=== PATIENT | female | born 1970 | race Caucasian/White ===

== ENCOUNTER 2017-03-02 01:01 | Emergency (ER) | payer MEDICAID ==
[2017-03-02 01:15] VITALS: BP 114/90
--- NOTE | 2017-03-02 01:57 | EDM.PDOC ---
ED HPI GENERAL MEDICAL PROBLEM - General Chief Complaint: Abdominal Pain Stated Complaint: ABDOMINAL PRESSURE BACK PAIN Time Seen by Provider: 03/02/17 01:09 Source of Information: Reports: Patient, RN Notes Reviewed History Limitations: Reports: No Limitations - History of Present Illness INITIAL COMMENTS - FREE TEXT/NARRATIVE: The patient states that she is intentionally discontinuing her psychiatric medications because she does not want to be on them. Her Psychiatrist, Dr. Alves , is not aware of the patient doing this. The patient has already discontinued her Wellbutrin and Cymbalta, and is tapering her Klonopin and Vyvanse. She now presents with 3 weeks of feeling bloated, having "brain zaps", feeling sick and not feeling well, back pain with a creeping sensation into her shoulders, and the feeling of vibrating inside. It is unclear what brings the patient in tonight, specifically, since the symptoms have been going on for so long. The patient states that she took some MiraLAX yesterday, which may be contributing to her bloating symptoms. She also reports that she just finished her menses, and that she may be perimenopausal. It is noted that the patient's oxygen saturation is 100% on room air. 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 Tubal .) Musculoskeletal Surgical History: Reports: Other (See Below) (Spinal gio) Social & Family History - Tobacco Use Smoking Status *Q: Former Smoker Years of Tobacco use: 20 Packs/Tins Daily: 0.4 Used Tobacco, but Quit: Yes Month Tobacco Last Used: Quit January 2017 - Caffeine Use Caffeine Use: Reports: Coffee - Alcohol Use Alcohol Use History: No - Recreational Drug Use Recreational Drug Use: Yes Drug Use in Last 12 Months: Yes Recreational Drug Type: Reports: Marijuana/Hashish Recreational Drug Use Frequency: Weekly Recreational Drug Last Use: january - Living Situation & Occupation Living situation: Reports: Single, Alone Occupation: Unemployed ED ROS GENERAL - Review of Systems Review Of Systems: See Below Constitutional: Reports: No Symptoms HEENT: Reports: No Symptoms Respiratory: Reports: No Symptoms Cardiovascular: Reports: No Symptoms Endocrine: Reports: No Symptoms GI/Abdominal: Reports: Other (Abdominal bloating) : Reports: No Symptoms Musculoskeletal: Reports: No Symptoms Skin: Reports: No Symptoms Neurological: Reports: No Symptoms Psychiatric: Reports: No Symptoms Hematologic/Lymphatic: Reports: No Symptoms Immunologic: Reports: No Symptoms ED EXAM, GENERAL - Physical Exam Exam: See Below Exam Limited By: No Limitations General Appearance: Alert, WD/WN, No Apparent Distress Eye Exam: Bilateral Eye: Normal Inspection Ears: Normal External Exam, Hearing Grossly Normal Ear Exam: Bilateral Ear: Auricle Normal Nose: Normal Inspection, No Blood Throat/Mouth: Normal Inspection, Normal Lips, Normal Voice, No Airway Compromise Head: Atraumatic, Normocephalic Neck: Normal Inspection, Full Range of Motion Respiratory/Chest: No Respiratory Distress, Lungs Clear, Normal Breath Sounds, No Accessory Muscle Use Cardiovascular: Normal Peripheral Pulses, Regular Rate, Rhythm, No Gallop, No JVD, No Murmur, No Rub Peripheral Pulses: 4+: Radial (L), Radial (R) GI/Abdominal: Normal Bowel Sounds, Soft, Non-Tender, No Organomegaly, No Distention, No Abnormal Bruit, No Mass. No: Distended (Female) Exam: Deferred Rectal (Female) Exam: Deferred Back Exam: No: CVA Tenderness (L), CVA Tenderness (R) Extremities: Normal Inspection, Normal Range of Motion, No Pedal Edema, Normal Capillary Refill Neurological: Alert, Oriented, Normal Cognition, No Motor/Sensory Deficits Psychiatric: Anxious Skin Exam: Warm, Dry, Intact, Normal Color, No Rash Lymphatic: No Adenopathy EKG INTERPRETATION EKG Date: 03/02/17 Time: 01:46 Rhythm: NSR Rate (Beats/Min): 70 [place]: Normal P-Wave: Present QRS: Normal ST-T: Normal QT: Normal Course - Vital Signs Last Recorded V/S: Last Vital Signs Temp 36.2 C 03/02/17 01:08 Pulse 88 03/02/17 01:08 Resp 18 06/20/17 01:08 BP 114/90 03/02/17 01:08 Pulse Ox 100 03/02/17 01:08 - Orders/Labs/Meds Orders: Active Orders 24 hr Category Date Time Status EKG Documentation Completion [RC] STAT Care 03/02/17 01:31 Active KUB [Abdomen 1V Flat] [CR] Stat Exams 03/02/17 01:32 Taken Labs: Laboratory Tests 03/02/17 03/02/17 03/02/17 Range/Units 01:35 01:35 01:35 WBC (3.98-10.04) K/mm3 RBC (3.98-5.22) M/mm3 Hgb (11.2-15.7) gm/L Hct (34.1-44.9) % MCV (79.4-94.8) fl MCH (25.6-32.2) pg MCHC (32.2-35.5) g/dl RDW Std Deviation (36.4-46.3) fL Plt Count (182-369) K/mm3 MPV (9.4-12.3) fl Neutrophils % (Manual) (40-60) % Band Neutrophils % (0-10) % Lymphocytes % (Manual) (20-40) % Atypical Lymphs % % Monocytes % (Manual) (2-10) % Eosinophils % (Manual) (0.7-5.8) % Basophils % (Manual) (0.1-1.2) Platelet Estimate RBC Morph Comment D-Dimer, Quantitative (0.19-0.59) mg/L Puncture Site ABG pH (7.35-7.45) ABG pCO2 (35.0-45.0) mmHg ABG pO2 (80.0-100.0) mmHg ABG HCO3 (22.0-26.0) meq/L ABG O2 Saturation (96.0-97.0) % ABG Base Excess (-2-2.0) Parker Test A-a Gradient mmHg FiO2 (21.00-100.00) % Sodium (136-145) mEq/L Potassium (3.5-5.1) mEq/L Chloride (98-107) mEq/L Carbon Dioxide (21-32) mEq/L Anion Gap (5-15) BUN (7-18) mg/dL Creatinine (0.55-1.02) mg/dL Est Cr Clr Drug Dosing mL/min Estimated GFR (MDRD) (>60) mL/min BUN/Creatinine Ratio (14-18) Glucose (74-106) mg/dL Calcium (8.5-10.1) mg/dL Total Bilirubin (0.2-1.0) mg/dL AST (15-37) U/L ALT (14-59) U/L Alkaline Phosphatase (46-116) U/L Total Protein (6.4-8.2) g/dl Albumin (3.4-5.0) g/dl Globulin gm/dL Albumin/Globulin Ratio (1-2) TSH 3rd Generation (0.358-3.74) uIU/mL Urine Color Yellow (Yellow) Urine Appearance Clear (Clear) Urine pH 6.5 (5.0-8.0) Ur Specific [place] 1.025 (1.005-1.030) Urine Protein 1+ H (Negative) Urine Glucose (UA) Negative (Negative) Urine Ketones Negative (Negative) Urine Occult Blood Trace-intact H (Negative) Urine Nitrite Negative (Negative) Urine Bilirubin 1+ H (Negative) Urine Urobilinogen 1.0 (0.2-1.0) Ur Leukocyte Esterase Negative (Negative) Urine RBC 0-5 (0-5) /hpf Urine WBC 0-5 (0-5) /hpf Ur Epithelial Cells 10-20 H (0-5) /hpf Urine Bacteria Few (FEW) /hpf Urine Mucus Moderate H (FEW) /hpf Urine HCG, Qual Negative (NEGATIVE) Salicylates (2.8-20) mg/dL Urine Opiates Screen Negative (NEGATIVE) Ur Buprenorphine Scrn Negative (NEGATIVE) Ur Oxycodone Screen Negative (NEGATIVE) Urine Methadone Screen Negative (NEGATIVE) Ur Propoxyphene Screen Negative (NEGATIVE) Acetaminophen (10-30) ug/mL Ur Barbiturates Screen Negative (NEGATIVE) Ur Tricyclics Screen Negative (NEGATIVE) Ur Phencyclidine Scrn Negative (NEGATIVE) Ur Amphetamine Screen Presumptive positive H (NEGATIVE) U Methamphetamines Scrn Negative (NEGATIVE) U Benzodiazepines Scrn Negative (NEGATIVE) U Cocaine Metab Screen Negative (NEGATIVE) U Marijuana (THC) Screen Presumptive positive H (NEGATIVE) Ethyl Alcohol (0.00) gm% 03/02/17 03/02/17 03/02/17 Range/Units 01:45 01:45 01:45 WBC 8.23 (3.98-10.04) K/mm3 RBC 4.68 (3.98-5.22) M/mm3 Hgb 14.2 (11.2-15.7) gm/L Hct 41.8 (34.1-44.9) % MCV 89.3 (79.4-94.8) fl MCH 30.3 (25.6-32.2) pg MCHC 34.0 (32.2-35.5) g/dl RDW Std Deviation 40.9 (36.4-46.3) fL Plt Count 315 (182-369) K/mm3 MPV 9.7 (9.4-12.3) fl Neutrophils % (Manual) 57 (40-60) % Band Neutrophils % 0 (0-10) % Lymphocytes % (Manual) 36 (20-40) % Atypical Lymphs % 0 % Monocytes % (Manual) 3 (2-10) % Eosinophils % (Manual) 4 (0.7-5.8) % Basophils % (Manual) 0 L (0.1-1.2) Platelet Estimate Adequate RBC Morph Comment Normal D-Dimer, Quantitative 0.41 (0.19-0.59) mg/L Puncture Site ABG pH (7.35-7.45) ABG pCO2 (35.0-45.0) mmHg ABG pO2 (80.0-100.0) mmHg ABG HCO3 (22.0-26.0) meq/L ABG O2 Saturation (96.0-97.0) % ABG Base Excess (-2-2.0) Parker Test A-a Gradient mmHg FiO2 (21.00-100.00) % Sodium 139 (136-145) mEq/L Potassium 3.7 (3.5-5.1) mEq/L Chloride 105 (98-107) mEq/L Carbon Dioxide 26 (21-32) mEq/L Anion Gap 11.7 (5-15) BUN 16 (7-18) mg/dL Creatinine 0.9 (0.55-1.02) mg/dL Est Cr Clr Drug Dosing 71.03 mL/min Estimated GFR (MDRD) > 60 (>60) mL/min BUN/Creatinine Ratio 17.8 (14-18) Glucose 93 (74-106) mg/dL Calcium 8.3 L (8.5-10.1) mg/dL Total Bilirubin 0.7 (0.2-1.0) mg/dL AST 23 (15-37) U/L ALT 21 (14-59) U/L Alkaline Phosphatase 71 (46-116) U/L Total Protein 7.0 (6.4-8.2) g/dl Albumin 3.7 (3.4-5.0) g/dl Globulin 3.3 gm/dL Albumin/Globulin Ratio 1.1 (1-2) TSH 3rd Generation 3.088 (0.358-3.74) uIU/mL Urine Color (Yellow) Urine Appearance (Clear) Urine pH (5.0-8.0) Ur Specific [place] (1.005-1.030) Urine Protein (Negative) Urine Glucose (UA) (Negative) Urine Ketones (Negative) Urine Occult Blood (Negative) Urine Nitrite (Negative) Urine Bilirubin (Negative) Urine Urobilinogen (0.2-1.0) Ur Leukocyte Esterase (Negative) Urine RBC (0-5) /hpf Urine WBC (0-5) /hpf Ur Epithelial Cells (0-5) /hpf Urine Bacteria (FEW) /hpf Urine Mucus (FEW) /hpf Urine HCG, Qual (NEGATIVE) Salicylates (2.8-20) mg/dL Urine Opiates Screen (NEGATIVE) Ur Buprenorphine Scrn (NEGATIVE) Ur Oxycodone Screen (NEGATIVE) Urine Methadone Screen (NEGATIVE) Ur Propoxyphene Screen (NEGATIVE) Acetaminophen 0 L (10-30) ug/mL Ur Barbiturates Screen (NEGATIVE) Ur Tricyclics Screen (NEGATIVE) Ur Phencyclidine Scrn (NEGATIVE) Ur Amphetamine Screen (NEGATIVE) U Methamphetamines Scrn (NEGATIVE) U Benzodiazepines Scrn (NEGATIVE) U Cocaine Metab Screen (NEGATIVE) U Marijuana (THC) Screen (NEGATIVE) Ethyl Alcohol 0.00 (0.00) gm% 03/02/17 03/02/17 Range/Units 01:45 01:50 WBC (3.98-10.04) K/mm3 RBC (3.98-5.22) M/mm3 Hgb (11.2-15.7) gm/L Hct (34.1-44.9) % MCV (79.4-94.8) fl MCH (25.6-32.2) pg MCHC (32.2-35.5) g/dl RDW Std Deviation (36.4-46.3) fL Plt Count (182-369) K/mm3 MPV (9.4-12.3) fl Neutrophils % (Manual) (40-60) % Band Neutrophils % (0-10) % Lymphocytes % (Manual) (20-40) % Atypical Lymphs % % Monocytes % (Manual) (2-10) % Eosinophils % (Manual) (0.7-5.8) % Basophils % (Manual) (0.1-1.2) Platelet Estimate RBC Morph Comment D-Dimer, Quantitative (0.19-0.59) mg/L Puncture Site Lt radial ABG pH 7.44 (7.35-7.45) ABG pCO2 29.4 L (35.0-45.0) mmHg ABG pO2 86.0 (80.0-100.0) mmHg ABG HCO3 19.5 L (22.0-26.0) meq/L ABG O2 Saturation 98.0 H (96.0-97.0) % ABG Base Excess -3.1 L (-2-2.0) Parker Test Positive A-a Gradient 12 mmHg FiO2 21.00 (21.00-100.00) % Sodium (136-145) mEq/L Potassium (3.5-5.1) mEq/L Chloride (98-107) mEq/L Carbon Dioxide (21-32) mEq/L Anion Gap (5-15) BUN (7-18) mg/dL Creatinine (0.55-1.02) mg/dL Est Cr Clr Drug Dosing mL/min Estimated GFR (MDRD) (>60) mL/min BUN/Creatinine Ratio (14-18) Glucose (74-106) mg/dL Calcium (8.5-10.1) mg/dL Total Bilirubin (0.2-1.0) mg/dL AST (15-37) U/L ALT (14-59) U/L Alkaline Phosphatase (46-116) U/L Total Protein (6.4-8.2) g/dl Albumin (3.4-5.0) g/dl Globulin gm/dL Albumin/Globulin Ratio (1-2) TSH 3rd Generation (0.358-3.74) uIU/mL Urine Color (Yellow) Urine Appearance (Clear) Urine pH (5.0-8.0) Ur Specific [place] (1.005-1.030) Urine Protein (Negative) Urine Glucose (UA) (Negative) Urine Ketones (Negative) Urine Occult Blood (Negative) Urine Nitrite (Negative) Urine Bilirubin (Negative) Urine Urobilinogen (0.2-1.0) Ur Leukocyte Esterase (Negative) Urine RBC (0-5) /hpf Urine WBC (0-5) /hpf Ur Epithelial Cells (0-5) /hpf Urine Bacteria (FEW) /hpf Urine Mucus (FEW) /hpf Urine HCG, Qual (NEGATIVE) Salicylates 1.0 L (2.8-20) mg/dL Urine Opiates Screen (NEGATIVE) Ur Buprenorphine Scrn (NEGATIVE) Ur Oxycodone Screen (NEGATIVE) Urine Methadone Screen (NEGATIVE) Ur Propoxyphene Screen (NEGATIVE) Acetaminophen (10-30) ug/mL Ur Barbiturates Screen (NEGATIVE) Ur Tricyclics Screen (NEGATIVE) Ur Phencyclidine Scrn (NEGATIVE) Ur Amphetamine Screen (NEGATIVE) U Methamphetamines Scrn (NEGATIVE) U Benzodiazepines Scrn (NEGATIVE) U Cocaine Metab Screen (NEGATIVE) U Marijuana (THC) Screen (NEGATIVE) Ethyl Alcohol (0.00) gm% - Radiology Interpretation Free Text/Narrative:: The KUB appears to demonstrate nonspecific bowel gas pattern, and stool noted in the right colon. Incidentally noted is severe scoliosis with a thoracic spine gio. Formal read per the Radiologist pending. - Re-Assessments/Exams Free Text/Narrative Re-Assessment/Exam: 03/02/17 02:22 The patient's ABG demonstrates chronic (fully compensated) respiratory alkalosis. The patient's urinalysis is consistent with contamination, not a UTI. 03/02/17 03:08 Test results discussed with the patient. Keith's workup is remarkable for an ABG that shows chronic respiratory alkalosis due to hyperventilation, which is most likely the cause of the majority of the patient's symptoms. She is most likely hyperventilating because of stopping her Wellbutrin and Cymbalta, and decreasing her Klonopin. I recommended that she go back on her medications, and that if she did not want to be on these medications, that she coordinate her withdrawal with her prescribing physician, however, she states that Dr. Alves will not work with her. My plan was to discharge the patient, but before I could begin dictating a discharge summary, the patient left the ED without waiting for her discharge papers. Departure - Departure Time of Disposition: 03:09 Disposition: Eloped 07 Condition: Fair Clinical Impression: Hyperventilation syndrome, Noncompliance with medication regimen - Discharge Information Referrals: PCP,None [Primary Care Provider] - Bambi Alves MD [Ordering Only Provider] - Forms: ED Department Discharge - My Orders Last 24 Hours: My Active Orders 03/02/17 01:31 EKG Documentation Completion [RC] STAT 03/02/17 01:32 KUB [Abdomen 1V Flat] [CR] Stat - Assessment/Plan Last 24 Hours: My Active Orders 03/02/17 01:31 EKG Documentation Completion [RC] STAT 03/02/17 01:32 KUB [Abdomen 1V Flat] [CR] Stat
[2017-03-02 02:26] LABS: ACETAMINOPHEN 0 ug/mL (10-30)
--- NOTE | 2017-03-02 09:07 | CR ---
Abdomen: Supine view of the abdomen was obtained. Comparison: No previous study. Scoliosis is noted within the spine. Spinal fixation rods are seen within the lower thoracic spine which are incompletely visualized. Bowel gas pattern is normal. Mild degenerative sclerosis is noted within the pubic symphysis. Bowel gas pattern appears normal. No abnormal calcifications or discrete soft tissue abnormality is seen. Impression: 1. Incidental bone findings as noted above. 2. Bowel gas pattern appears normal. Diagnostic code #2
== END 2017-03-02 03:09 | disposition home or self-care (01) ==
LOC: JD.ED 01:01
DX: F45.8 Other somatoform disorders (principal); F41.9 Anxiety disorder, unspecified; F32.9 Major depressive disorder, single episode, unspecified; Z91.14 Patient's other noncompliance with medication regimen; Z90.49 Acquired absence of other specified parts of digestive tract; Z87.891 Personal history of nicotine dependence
CPT/HCPCS: 36415; 36600; 74000; 80053; 80306; 81001; 81025; 82803; 84443; 85025; 85379; 93005; 99284; G0480; 99283

== ENCOUNTER 2017-11-07 22:35 | Emergency (ER) | payer MEDICAID, OTHER ==
[2017-11-07] MEDS ORDERED: Lidocaine 1% 10 ML MDV INJECT ONE (23:18)
[2017-11-07 23:23] VITALS: BP 120/79
--- NOTE | 2017-11-07 23:23 | EDM.PDOC ---
ED HPI GENERAL MEDICAL PROBLEM - General Chief Complaint: Laceration Stated Complaint: POSS FOOT INJURY Time Seen by Provider: 11/07/17 23:18 Source of Information: Reports: Patient, Family History Limitations: Reports: No Limitations - History of Present Illness INITIAL COMMENTS - FREE TEXT/NARRATIVE: 47-year-old female presents the ED with a flap laceration to the dorsal aspect of her left foot. She states she was in her spare bedroom which is cluttered and there is some broken glass on the floor. As she stepped over a broken picture frame a piece of glass essentially stabbed her in the dorsal foot causing a flap laceration. Last tetanus toxoid was about 9 years ago she believes. Onset: Today Onset Date: 11/07/17 Onset Time: 23:00 Duration: Minutes: Location: Reports: Lower Extremity, Left Quality: Reports: Ache Severity: Mild Improves with: Reports: None Worsens with: Reports: None Context: Reports: Trauma. 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 Tubal .) Musculoskeletal Surgical History: Reports: Other (See Below) (Spinal gio) Social & Family History - Tobacco Use Smoking Status *Q: Former Smoker Years of Tobacco use: 20 Packs/Tins Daily: 0.4 Used Tobacco, but Quit: Yes Month Tobacco Last Used: Quit January 2017 - Caffeine Use Caffeine Use: Reports: Coffee - Recreational Drug Use Recreational Drug Use: Yes Drug Use in Last 12 Months: Yes Recreational Drug Type: Reports: Marijuana/Hashish Recreational Drug Use Frequency: Weekly Recreational Drug Last Use: january - Living Situation & Occupation Living situation: Reports: Single, Alone Occupation: Unemployed ED ROS GENERAL - Review of Systems Review Of Systems: See Below Constitutional: Reports: No Symptoms HEENT: Reports: No Symptoms Respiratory: Reports: No Symptoms Cardiovascular: Reports: No Symptoms Endocrine: Reports: No Symptoms GI/Abdominal: Reports: No Symptoms : Reports: No Symptoms Musculoskeletal: Reports: No Symptoms Skin: Reports: No Symptoms Psychiatric: Reports: Anxiety ED EXAM, SKIN/RASH Exam: See Below Exam Limited By: No Limitations General Appearance: Alert, WD/WN, Anxious, Mild Distress Peripheral Pulses: 1+: Posterior Tibial (R), Dorsalis Pedis (L) Extremities: Other (Examination the left foot shows a 2.5 cm jagged flap laceration over the dorsal forefoot primarily over the fourth medical tarsal. She has full range of motion of her toes I dorsiflexion and extension. No evidence of neurovascular or tendon injury. Obvious foreign body retention. Wound is mildly bleeding.) Neurological: Alert, Oriented, CN II-XII Intact, Normal Cognition, Normal Gait ED SKIN PROCEDURES - Laceration/Wound Repair Left Dorsal Foot Lac/Wound length In cm: 2.5 Appearance: Subcutaneous, Clean Distal NVT: Neuro & Vascular Intact Anesthetic Type: Local Local Anesthesia - Lidocaine (Xylocaine): 1% Plain Local Anesthetic Volume: 3cc Skin Prep: Saline Exploration/Debridement/Repair: Wound Explored Suture Size: 4-0 # of Sutures: 7 Suture Type: Nylon, Interrupted, Simple Course - Vital Signs Last Recorded V/S: Last Vital Signs Temp 36.9 C 11/07/17 23:22 Pulse 79 11/07/17 23:22 Resp 20 11/07/17 23:22 BP 120/79 11/07/17 23:22 Pulse Ox 98 11/07/17 23:22 - Orders/Labs/Meds Meds: Medications Discontinued Medications Generic Name Dose Route Start Last Admin Trade Name Freq PRN Reason Stop Dose Admin Lidocaine HCl 10 ml 11/07/17 23:18 11/07/17 23:33 Xylocaine 1% INJECT 11/07/17 23:19 10 ml ONETIME ONE Administration - Radiology Interpretation Free Text/Narrative:: 47-year-old female presents the ED with a laceration to the dorsal aspect of her left forefoot. She inadvertently cut it on a piece of glass . Has a 2.5 cm flap laceration over the fourth metatarsal. No evidence of neurovascular or tendon injury. Plan lidocaine 1% to provide local anesthetic with plan to suture the laceration after exploration. Departure - Departure Time of Disposition: 00:30 Disposition: Home, Self-Care 01 Condition: Fair Clinical Impression: Laceration of foot Qualifiers: Encounter type: initial encounter Laterality: left Qualified Code(s): S91.312A - Laceration without foreign body, left foot, initial encounter - Discharge Information Referrals: Bright Randhawa MD [Primary Care Provider] - Forms: ED Department Discharge Additional Instructions: Evaluation the emergency room tonight in regards to a deep laceration to the dorsal aspect of your left foot that occurred from a piece of glass. Partially 2.5 cm jagged flap laceration identified. Wound was explored after anesthetized with 1% lidocaine and no foreign body or glass was found within the wound. There is no injury to the underlying tendons or nerves. Wound was then sutured 7 sit stitches to provide wound closure. Treatment at home is daily cleanse the wound with soap and water. Showering is okay but the wound should not be soaked directly under water until the stitches are removed. Apply topical antibiotic such as bacitracin or Polysporin once daily and cover with a bandage to keep clean and from she was rubbing on it. Stitches need to be removed in 10 days' time. Return to medical care if any signs of infection occur such as redness swelling or obvious pus.
== END 2017-11-08 00:39 | disposition home or self-care (01) ==
LOC: JD.ED 22:35
DX: S91.312A Laceration without foreign body, left foot, initial encounter (principal); F32.9 Major depressive disorder, single episode, unspecified; Z87.891 Personal history of nicotine dependence; Z79.899 Other long term (current) drug therapy; W25.XXXA Contact with sharp glass, initial encounter
CPT/HCPCS: 12001; 99282-25; 99283-25

== ENCOUNTER 2017-11-29 09:32 | Emergency (ER) | payer OTHER ==
[2017-11-29 09:41] VITALS: BP 148/88
--- NOTE | 2017-11-29 09:59 | EDM.PDOC ---
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 States she attended work on WednesdayNovember 27 with no difficulties or pain. About 2:00 in the afternoon she started to limp and have increasing pain in her lower back rating down her posterior left thigh. That time the pain is persistent it is constant. It is worsened by standing but it's just as bad line. She cannot find a comfortable position. No past history of low back pain she has had scoliosis repair with rods of the thoracic spine. Current pain radiates to just below the back of her knee on the left side. She is walking with a definite limp. Slips or falls that she can remember last week. Her work does involve a lot of twisting and turning and of course working on hard concrete floor. Denies any pros with bowel or bladder function. Onset: Gradual Onset Date: 11/27/17 Onset Time: 14:00 Duration: Day(s): Location: Reports: Back (Diffuse low back pain with radicular pain into the left buttock and posterior left thigh down below the knee.) Quality: Reports: Ache, Pressure, Throbbing, Other Severity: Severe (Current pain is 8 out of 10.) Improves with: Reports: None (He has bad lying) Worsens with: Reports: Movement Context: Reports: Other (Unknown how she developed this. No specific injuries in the workplace). Denies: Activity (Pain is worsened by standing for very long.), Exercise, Lifting, Sick Contact, Trauma Associated Symptoms: Denies: Confusion, Chest Pain, cough w sputum, Diaphoresis , Fever/Chills, Headaches, Loss of Appetite, Malaise, Nausea/Vomiting, Rash, Seizure, Shortness of Breath, Syncope Treatments [employer]: Reports: Other Medication(s) Other Treatments [employer]: aleve Lower Back Pain Score (Numeric/FACES): 8 - Related Data Allergies Allergy/AdvReac Type Severity Reaction Status Date / Time No Known Allergies Allergy Verified 03/02/17 01:16 Home Meds: Home Meds clonazePAM [Klonopin] 1 mg PO DAILY 03/27/16 [History] Citalopram Hydrobromide [Celexa] 10 mg PO DAILY 11/07/17 [History] Albuterol [Proair HFA] 1 puff IH Q4H PRN 11/29/17 [History] Diclofenac Sodium [Voltaren] 50 mg PO TID #30 tab.ec 11/29/17 [Rx] oxyCODONE HCl/Acetaminophen [Percocet 5-325 mg Tablet] 1 - 2 each PO Q4H PRN # 20 tablet 11/29/17 [Rx] predniSONE [Deltasone] 20 mg PO ASDIRECTED #15 tablet 11/29/17 [Rx] Past Medical History Respiratory History: Reports: Asthma [employer] History: Reports: Ectopic , 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 Musculoskeletal History: Reports: Other (See Below) Other Musculoskeletal History: scoliosis, 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 Psychiatric History: Reports: ADHD, Anxiety, Depression, Panic Attack, PTSD Hematologic History: Reports: Blood Transfusion(s) - Past Surgical History GI Surgical History: Reports: Appendectomy Social & Family History - Family History Family Medical History: Noncontributory - Tobacco Use Smoking Status *Q: Never Smoker Years of Tobacco use: 20 Packs/Tins Daily: 0.4 Used Tobacco, but Quit: Yes Month/Year Tobacco Last Used: Quit January 2017 - Caffeine Use Caffeine Use: Reports: Coffee - Recreational Drug Use Recreational Drug Use: No Drug Use in Last 12 Months: Yes Recreational Drug Type: Reports: Marijuana/Hashish Recreational Drug Use Frequency: Weekly Recreational Drug Last Use: january - Living Situation & Occupation Living situation: Reports: Single, Alone Occupation: Unemployed ED [facility] - Review of Systems Review Of Systems: See Below Constitutional: Reports: Fatigue (From not sleeping very well the last 2 nights. ). Denies: Fever, Malaise, Weakness HEENT: Reports: No Symptoms Respiratory: Reports: No Symptoms Cardiovascular: Reports: No Symptoms Endocrine: Reports: No Symptoms GI/Abdominal: Reports: Constipation : Reports: No Symptoms (Some problems with constipation.) Musculoskeletal: Reports: Back Pain (Mid back pain from previous rodding for scoliosis of the thoracic spine.) Skin: Reports: No Symptoms Neurological: Reports: Other (Radicular pain in the posterior aspect of the) Psychiatric: Reports: Anxiety Hematologic/Lymphatic: Reports: No Symptoms ED EXAM,LOWER BACK PAIN/INJURY - Physical Exam Exam: See Below Exam Limited By: No Limitations General Appearance: Alert, WD/WN, Mild Distress Cardiovascular: Normal Peripheral Pulses, Regular Rate, Rhythm, No Edema, No Gallop, No Murmur GI/Abdominal: Normal Bowel Sounds, Soft, Non-Tender, No Organomegaly Back Exam: Other (Patient has rodding of her thoracic spine and carried out in the past. Well-healed scar. She has some pain and tenderness over L4-L5 and L5- S1 facet joints bilaterally. However stressing the SI joints caused severe pain taken on the left side but moderate pain on the right side as well. Straight leg raising was 60 with out any limitations. Reflexes are present in both ankles and the knees. Likely she has bilateral severe sacroiliitis worse on the left as compared to the right.) Extremities: Normal Inspection, Normal Range of Motion, Non-Tender, No Pedal Edema, Normal Capillary Refill Neurological: Normal Mood/Affect, Normal Dorsiflexion, CN II-XII Intact, Normal Plantar Flexion, Normal Reflexes, Oriented x 3, Straight Leg Raise (L) (Normal to 60 normal to 60), Straight Leg Raise (R), Difficulty Walking. No: Normal Gait, Babinski DTR - Lower Extremities: 2+: Knee (R), Knee (L), Ankle (R), Ankle (L) Psychiatric: Anxious Skin Exam: Dry, Intact, Normal Color, No Rash, Decubitus Course - Vital Signs Last Recorded V/S: Last Vital Signs Temp 36.4 C 11/29/17 09:36 Pulse 83 11/29/17 09:36 Resp 18 11/29/17 09:36 BP 148/88 H 11/29/17 09:36 Pulse Ox 97 11/29/17 09:36 - Radiology Interpretation Free Text/Narrative:: 47-year-old female presents to the ED with diffuse low back pain rating down her posterior left buttock and into the left thigh behind her knee. 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 No specific injuries occurred. On examination she has mild to moderate pain at L4-L5 and L5-S1 facet joints on both sides of her lower back. She has severe pain on palpation of the left sacroiliac joint and moderate pain of palpation of the right sacroiliac joint. Neurologically she is intact. Knee jerks and ankle jerks are normal straight leg raising was to 60 bilaterally without any evidence of nerve root entrapment. Plan off work for this week. Aggressive anti-inflammatory treatment program with Voltaren 50 mg 3 times daily for 10 days. Prednisone 20 mg with breakfast and supper for 5 days then once in the morning only for another 5 days. Percocet 5/3/25 milligram tabs one or 2 every 4-6 hours for pain relief particularly at bedtime so that she can sleep. 20 tablets provided. She is advised to follow-up with Dr. Hilliard her primary care physician or Wednesday this week to see if she is getting better enough to return to work early next week. Departure - Departure Time of Disposition: 09:55 Disposition: Home, Self-Care 01 Condition: Fair Clinical Impression: Sacroiliitis, Low back pain - Discharge Information Prescriptions: Diclofenac Sodium [Voltaren] 50 mg PO TID #30 tab.ec oxyCODONE HCl/Acetaminophen [Percocet 5-325 mg Tablet] 1 - 2 each PO Q4H PRN # 20 tablet PRN Reason: pain relief. predniSONE [Deltasone] 20 mg PO ASDIRECTED #15 tablet Instructions: Back Pain, Adult, [id number] Referrals: Bright Randhawa MD [Primary Care Provider] - Forms: ED Department Discharge, ED Return to Work/School Form Additional Instructions: Evaluation the emergency room today in regards to development of diffuse low back pain with referred pain into the left buttock and down the back of the left leg starting November 27. No specific injury in the workplace was identified to be the cause. Examination reveals no clear-cut evidence of nerve root compression. A straight leg raising is normal bilaterally. However stressing the sacroiliac joint bilaterally is mildly painful but moderately painful on the left as compared to the right.This is sacroiliitis. There is associated mild diffuse low back pain and some inflammation in the L4-L5 facet joints bilaterally. It is time to heal. Off work the rest of this week. Suggest follow-up with her personal care provider on Wednesday to see if you might be able to return to work Wednesday next week. Emend is anti-inflammatory Deltasone 20 mg with breakfast and supper for 5 days then 1 tablet in the morning only for another 5 days. Should be taken with food. Voltaren 50 mg 3 times daily for the next 10 days to reduce pain and inflammation. This too should be taken with food. Percocet 5/325 milligram tablets one or 2 every 4-6 hours for pain relief particularly at bedtime to allow you to sleep. Should not operate a motor vehicle or machinery while taking this pain medication.
== END 2017-11-29 10:02 | disposition home or self-care (01) ==
LOC: JD.ED 09:32
DX: M46.1 Sacroiliitis, not elsewhere classified (principal); Z79.899 Other long term (current) drug therapy; Z87.891 Personal history of nicotine dependence
CPT/HCPCS: 99283

== ENCOUNTER 2018-04-24 19:13 | Emergency (ER) | payer SELFPAY ==
[2018-04-24 19:29] VITALS: BP 141/96
[2018-04-24] MEDS ORDERED: HYDROmorphone 1 MG/ML Syringe IM ONE (19:45)
[2018-04-24] MEDS ORDERED: Ondansetron 4 MG Tab.DIS PO ONE (19:45)
--- NOTE | 2018-04-24 19:51 | EDM.PDOC ---
ED HPI GENERAL MEDICAL PROBLEM - General Chief Complaint: Back Pain or Injury Stated Complaint: LOWER BACK PAIN Time Seen by Provider: 04/24/18 19:34 Source of Information: Reports: Patient History Limitations: Reports: No Limitations - History of Present Illness INITIAL COMMENTS - FREE TEXT/NARRATIVE: Patient is a 47-year-old female who presents ED complaining of low back discomfort and pain to the suprapubic region. Patient states the discomfort to her lower abdomen has been present for the past few days. She's noticed some increased frequency of urination with small amounts. No dysuria noted. She's got a foul order to her urine for the past week. No abnormal vaginal discharge. No documented fever. No nausea or vomiting although she does have a poor appetite. She denies any diarrhea or blood in her stool. She's been having normal bowel movements with no straining required. Pain to the abdomen described as a achy crampy sensation that is sharp on intermittent basis. It is not constant. Yesterday she was not at work because she felt ill. 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 She does have scoliosis and has surgery in the past to correct this. Pain is localized to the back. She denies any numbness or tingling to her explore extremities. No incontinence to urine or stool. Pain is worse with palpation and also movement. Nothing unusual when she overdoes herself. She has not taken any [id number] pain medications. Again she denies being . 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 ED EXAM, GI/ABD - Physical Exam Exam: See Below Exam Limited By: No Limitations General Appearance: Alert, WD/WN, No Apparent Distress Ears: Hearing Grossly Normal Nose: Normal Inspection Throat/Mouth: Normal Voice, No Airway Compromise Head: Atraumatic, Normocephalic Neck: Normal Inspection, Supple, Non-Tender, Full Range of Motion Respiratory/Chest: No Respiratory Distress, Lungs Clear, Normal Breath Sounds, Chest Non-Tender Cardiovascular: Normal Peripheral Pulses, Regular Rate, Rhythm, No Murmur GI/Abdominal Exam: Normal Bowel Sounds, Soft, Non-Tender, No Organomegaly, No Distention (Female) Exam: Deferred Rectal (Female) Exam: Deferred Back Exam: Normal Inspection, Decreased Range of Motion, Vertebral Tenderness ( Tenderness noted along the lumbar spine with palpation and along the waistline bilaterally. No swelling, rash, bony abnormalities, redness, or any additional pertinent findings noted.). No: CVA Tenderness (L), CVA Tenderness (R) Extremities: Normal Inspection, Normal Range of Motion, Non-Tender, No Pedal Edema, Normal Capillary Refill Neurological: Alert, Oriented, CN II-XII Intact, Normal Cognition, No Motor/ Sensory Deficits Psychiatric: Normal Affect, Normal Mood Skin Exam: Warm, Dry, Intact, Normal Color, No Rash Course - Vital Signs Last Recorded V/S: Last Vital Signs Temp 98.1 F 04/24/18 19:28 Pulse 107 H 04/24/18 19:28 Resp 20 04/24/18 19:28 BP 141/96 H 04/24/18 19:28 Pulse Ox 96 04/24/18 19:28 - Orders/Labs/Meds Orders: Active Orders 24 hr Category Date Time Status Abdomen 2V AP Flat Upright [CR] Stat Exams 04/24/18 19:44 Taken HCG QUALITATIVE,URINE [URCHEM] Stat Lab 04/24/18 20:15 Ordered Labs: Laboratory Tests 08/12/18 08/12/18 08/12/18 Range/Units 20:00 20:00 20:15 WBC 13.99 H (3.98-10.04) K/mm3 RBC 4.81 (3.98-5.22) M/mm3 Hgb 13.5 (11.2-15.7) gm/L Hct 41.2 (34.1-44.9) % MCV 85.7 (79.4-94.8) fl MCH 28.1 (25.6-32.2) pg MCHC 32.8 (32.2-35.5) g/dl RDW Std Deviation 43.1 (36.4-46.3) fL Plt Count 420 H (182-369) K/mm3 MPV 9.8 (9.4-12.3) fl Neutrophils % (Manual) 60 (40-60) % Band Neutrophils % 0 (0-10) % Lymphocytes % (Manual) 32 (20-40) % Atypical Lymphs % 0 % Monocytes % (Manual) 5 (2-10) % Eosinophils % (Manual) 3 (0.7-5.8) % Basophils % (Manual) 0 L (0.1-1.2) Platelet Estimate Adequate Plt Morphology Comment Normal RBC Morph Comment Normal Sodium 141 (136-145) mEq/L Potassium 4.1 (3.5-5.1) mEq/L Chloride 105 (98-107) mEq/L Carbon Dioxide 27 (21-32) mEq/L Anion Gap 13.1 (5-15) BUN 15 (7-18) mg/dL Creatinine 1.0 (0.55-1.02) mg/dL Est Cr Clr Drug Dosing 63.25 mL/min Estimated GFR (MDRD) 60 (>60) mL/min BUN/Creatinine Ratio 15.0 (14-18) Glucose 96 (74-106) mg/dL Calcium 8.6 (8.5-10.1) mg/dL Total Bilirubin 0.2 (0.2-1.0) mg/dL AST 17 (15-37) U/L ALT 26 (14-59) U/L Alkaline Phosphatase 93 (46-116) U/L C-Reactive Protein 0.5 (<1.0) mg/dL Total Protein 7.4 (6.4-8.2) g/dl Albumin 3.4 (3.4-5.0) g/dl Globulin 4.0 gm/dL Albumin/Globulin Ratio 0.9 L (1-2) Urine Color (Yellow) Urine Appearance (Clear) Urine pH (5.0-8.0) Ur Specific [place] (1.005-1.030) Urine Protein (Negative) Urine Glucose (UA) (Negative) Urine Ketones (Negative) Urine Occult Blood (Negative) Urine Nitrite (Negative) Urine Bilirubin (Negative) Urine Urobilinogen (0.2-1.0) Ur Leukocyte Esterase (Negative) Urine RBC (0-5) /hpf Urine WBC (0-5) /hpf Ur Epithelial Cells (0-5) /hpf Urine Bacteria (FEW) /hpf Urine Mucus (FEW) /hpf Urine HCG, Qual Negative (NEGATIVE) 04/24/18 Range/Units 20:15 WBC (3.98-10.04) K/mm3 RBC (3.98-5.22) M/mm3 Hgb (11.2-15.7) gm/L Hct (34.1-44.9) % MCV (79.4-94.8) fl MCH (25.6-32.2) pg MCHC (32.2-35.5) g/dl RDW Std Deviation (36.4-46.3) fL Plt Count (182-369) K/mm3 MPV (9.4-12.3) fl Neutrophils % (Manual) (40-60) % Band Neutrophils % (0-10) % Lymphocytes % (Manual) (20-40) % Atypical Lymphs % % Monocytes % (Manual) (2-10) % Eosinophils % (Manual) (0.7-5.8) % Basophils % (Manual) (0.1-1.2) Platelet Estimate Plt Morphology Comment RBC Morph Comment Sodium (136-145) mEq/L Potassium (3.5-5.1) mEq/L Chloride (98-107) mEq/L Carbon Dioxide (21-32) mEq/L Anion Gap (5-15) BUN (7-18) mg/dL Creatinine (0.55-1.02) mg/dL Est Cr Clr Drug Dosing mL/min Estimated GFR (MDRD) (>60) mL/min BUN/Creatinine Ratio (14-18) Glucose (74-106) mg/dL Calcium (8.5-10.1) mg/dL Total Bilirubin (0.2-1.0) mg/dL AST (15-37) U/L ALT (14-59) U/L Alkaline Phosphatase (46-116) U/L C-Reactive Protein (<1.0) mg/dL Total Protein (6.4-8.2) g/dl Albumin (3.4-5.0) g/dl Globulin gm/dL Albumin/Globulin Ratio (1-2) Urine Color Yellow (Yellow) Urine Appearance Slt cloudy H (Clear) Urine pH 5.5 (5.0-8.0) Ur Specific [place] > or = 1.030 (1.005-1.030) Urine Protein Negative (Negative) Urine Glucose (UA) Negative (Negative) Urine Ketones Negative (Negative) Urine Occult Blood Negative (Negative) Urine Nitrite Negative (Negative) Urine Bilirubin Negative (Negative) Urine Urobilinogen 0.2 (0.2-1.0) Ur Leukocyte Esterase Negative (Negative) Urine RBC Not seen (0-5) /hpf Urine WBC 0-5 (0-5) /hpf Ur Epithelial Cells 5-10 H (0-5) /hpf Urine Bacteria Rare (FEW) /hpf Urine Mucus Not seen (FEW) /hpf Urine HCG, Qual (NEGATIVE) Meds: Medications Discontinued Medications Generic Name Dose Route Start Last Admin Trade Name Swathi PRN Reason Stop Dose Admin Hydromorphone HCl 1 mg 04/24/18 19:45 04/24/18 19:56 Dilaudid IM 04/24/18 19:46 1 mg ONETIME ONE Administration Ondansetron HCl 4 mg 04/24/18 19:45 04/24/18 19:56 Zofran Odt PO 04/24/18 19:46 4 mg ONETIME ONE Administration - Re-Assessments/Exams Free Text/Narrative Re-Assessment/Exam: On examination patient had no abdominal discomfort. She reports some suprapubic abdominal pain with ambulation. She's also reports increased frequency of urination with small amounts. No dysuria. As far as the back pain she does have scoliosis with surgery to correct this. She does bend over quite frequently at work and believes she may have aggravated her back. Pain is localized midline that radiates across the low back. Nothing unusual. No no sequelae to lower extremities. No incontinence to urine or stool. No weakness noted. She does not appear in acute distress. Will obtain basic labs including: CBC, chem 14, CRP, UA, and hCG. Patient reports not feeling well for the past 2 days. Will also evaluate for stool and gas pattern with x-ray of the abdomen. Have ordered Dilaudid 1 mg IM. An 4 mg by mouth. No IV fluids will be administered at this point. She has been drinking plenty of fluids. Oral mucosa is moist. HR normal. Paient has no dizziness with standing. CBC essentially normal. Chemistry panel essentially normal. CRP normal. UA negative for infection. No additional testing will be obtained today. On examination she had no abdominal pain. Suspect intermittent discomfort to her abdomen is associated with constipation. Since she describes it as crampy sharp sensation that comes and goes. Will send the patient home with a bottle of mag citrate to take this evening. In addition she will start taking MiraLAX one capful every day. In relation to her low back. I do believe this is a combination of poor posture while at work and her history of scoliosis. She was advised to refrain from any activities that cause worsening pain. Utilize ibuprofen and/or Tylenol and alternate fashion for discomfort. Warm compresses to the affected area with some gentle massage and passive stretching would help. Departure - Departure Time of Disposition: 21:04 Disposition: Home, Self-Care 01 Condition: Good Clinical Impression: Abdominal pain Qualifiers: Abdominal location: unspecified location Qualified Code(s): R10.9 - Unspecified abdominal pain Constipation Qualifiers: Constipation type: unspecified constipation type Qualified Code(s): K59.00 - Constipation, unspecified Low back pain Qualifiers: Chronicity: acute Back pain laterality: midline Sciatica presence: without sciatica Qualified Code(s): M54.5 - Low back pain Scoliosis Qualifiers: Scoliosis type: unspecified scoliosis Spinal region: unspecified Qualified Code (s): M41.9 - Scoliosis, unspecified - Discharge Information Instructions: Constipation, Adult, Musculoskeletal Pain, Abdominal Pain, Adult , Back Exercises, [id number], Back Pain, Adult, [id number] Referrals: Bright Randhawa MD [Primary Care Provider] - Forms: ED Department Discharge, ED Return to Work/School Form Additional Instructions: Suspect intermittent discomfort to your abdomen is associated with constipation. Will have you take 1 bottle of mag citrate this evening. Start taking miralax 1 capful everyday. Drink plenty of fluids. Increase fiber in diet. In relation to you low back. I do believe this is a combination of poor posture while at work and your history of scoliosis. Refrain from any activities that cause worsening pain. Utilize ibuprofen and/or Tylenol and alternating fashion for discomfort. Warm compresses to the affected area with some gentle massage and passive stretching would help. No driving today since receiving a sedative medication. Please followup with PCP in 3 to 5 days for reevaluation. Return to the E.D. if you develop any new or worsening symptoms. - My Orders Last 24 Hours: My Active Orders 04/24/18 19:44 Abdomen 2V AP Flat Upright [CR] Stat 04/24/18 20:15 HCG QUALITATIVE,URINE [URCHEM] Stat - Assessment/Plan Last 24 Hours: My Active Orders 04/24/18 19:44 Abdomen 2V AP Flat Upright [CR] Stat 04/24/18 20:15 HCG QUALITATIVE,URINE [URCHEM] Stat
[2018-04-24] MEDS ORDERED: Magnesium Citrate Solution 296 ML Bottle PO ONE (21:00)
--- NOTE | 2018-04-25 10:49 | CR ---
Abdomen: Supine and upright views of the abdomen were obtained. Scoliosis is noted within the spine with degenerative change. Spinal fixation gio is noted within the lower thoracic spine. Bowel gas pattern appears normal. No abnormal calcifications or soft tissue abnormality is seen. No free air is seen. Impression: 1. Scoliosis and degenerative change. Spinal fixation gio is seen. 2. Other portions of the abdominal x-ray are within normal limits. Diagnostic code #2
== END 2018-04-24 21:20 | disposition home or self-care (01) ==
LOC: JD.ED 19:13
DX: K59.00 Constipation, unspecified (principal); M41.9 Scoliosis, unspecified
CPT/HCPCS: 36415; 74019; 80053; 81001; 81025; 85007; 85027; 86140; 96372; 99283; A9270; J1170; 99284

== ENCOUNTER 2019-01-06 06:41 | Day surgery (SDC) | payer BC, MEDICAID ==
[~2019-01-06 06:41] MED LIST: Lidocaine 1%/Sod Bicarbonate in NS 8.4% 1 ML Syringe IDERM PRN; Sodium Chloride 0.9% 10 ML Syringe FLUSH PRN
[2019-01-06] MEDS ORDERED: Ondansetron 4 MG/2 ML SDV ONE (07:05)
[2019-01-06] MEDS ORDERED: fentaNYL 250 MCG/5 ML SDV ONE (07:05)
[2019-01-06] MEDS ORDERED: Midazolam 1 MG/ML 2 ML SDV ONE (07:05)
[2019-01-06] MEDS ORDERED: Propofol 200 MG/20 ML SDV ONE (07:05)
[2019-01-06] MEDS ORDERED: Rocuronium 50 MG/5 ML Vial ONE ×2 (07:05→07:12)
[2019-01-06] MEDS ORDERED: Lidocaine 1% 4 ML ONE (07:05)
[2019-01-06] MEDS: Lactated Ringers 1,000 ML IV SCH ×2 (07:20→11:01)
[2019-01-06] MEDS ORDERED: Bupivacaine 0.25% 30 ML SDV ONE (07:22)
[2019-01-06] MEDS ORDERED: Bupivacaine 0.5% 30 ML SDV ONE (07:23)
--- NOTE | 2019-01-06 07:27 | PCM.PREANE ---
Preanesthetic Assessment - Procedure Proposed Procedure: laparaoscopy [place] hysteroscopy - Anesthesia/Transfusion/Family Hx Anesthesia History: Prior Anesthesia Without Reaction Family History of Anesthesia Reaction: No Transfusion History: Prior Transfusion Without Reaction - Review of Systems General: No Symptoms Pulmonary: Wheezing (always seem to have due to asthma) Cardiovascular: No Symptoms Gastrointestinal: No Symptoms Neurological: No Symptoms Other: Reports: Depression, Anxiety - Physical Assessment NPO Status Date: 01/06/19 NPO Status Time: 19:00 (sip with pill) O2 Sat by Pulse Oximetry: 95 Respiratory Rate: 16 Vital Signs: Last Vital Signs Temp 98.5 F 01/06/19 06:55 Pulse 84 01/06/19 06:55 Resp 16 01/06/19 06:55 BP 119/89 01/06/19 06:55 Pulse Ox 95 01/06/19 06:55 Height: 5 ft 6 in Weight: 90.265 kg ASA Class: 2 Mental Status: Alert & Oriented x3 Airway Class: Mallampati = 1 Dentition: Reports: Broken Tooth/Teeth (top left loose) Thyro-Mental Finger Breadths: 3 Mouth Opening Finger Breadths: 3 ROM/Head Extension: Full Lungs: Normal Respiratory Effort, Wheezing (left lower base) Cardiovascular: Regular Rate, Regular Rhythm - Allergies Allergies/Adverse Reactions: Allergies Allergy/AdvReac Type Severity Reaction Status Date / Time No Known Allergies Allergy Verified 01/05/19 14:25 - Blood Blood Available: No - Acknowledgements Anesthesia Type Planned: General Anesthesia Pt an Appropriate Candidate for the Planned Anesthesia: Yes Alternatives and Risks of Anesthesia Discussed w Pt/Guardian: Yes Pt/Guardian Understands and Agrees with Anesthesia Plan: Yes PreAnesthesia Questionnaire HEENT History: Reports: Allergic Rhinitis Cardiovascular History: Reports: None Respiratory History: Reports: Asthma Gastrointestinal History: Reports: None Genitourinary History: Reports: Other (See Below) Other Genitourinary History: dysmenorrhea, dysfunctional uterine bleeding, irregular menses, pelvic pain, 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 History: Reports: Ectopic , 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 Musculoskeletal History: Reports: Back Pain, Chronic, Other (See Below) Other Musculoskeletal History: scoliosis, 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 Neurological History: Reports: None Psychiatric History: Reports: ADHD, Anxiety, Depression, Panic Attack, PTSD Endocrine/Metabolic History: Reports: None Hematologic History: Reports: Blood Transfusion(s) Immunologic History: Reports: None Oncologic (Cancer) History: Reports: None Dermatologic History: Reports: None - Past Surgical History Head Surgeries/Procedures: Reports: None HEENT Surgical History: Reports: None Cardiovascular Surgical History: Reports: None Respiratory Surgical History: Reports: None GI Surgical History: Reports: None, Appendectomy Female Surgical History: Reports: Breast Implant, D&C, Other (See Below) ( laparoscopy) Endocrine Surgical History: Reports: None Neurological Surgical History: Reports: Scoliosis Musculoskeletal Surgical History: Reports: Other (See Below) Oncologic Surgical History: Reports: None Dermatological Surgical History: Reports: None - SUBSTANCE USE Smoking Status *Q: Former Smoker (quit 2014) Tobacco Use Within Last Twelve Months: No Second Hand Smoke Exposure: Yes Days Per Week of Alcohol Use: 0 Recreational Drug Use History: Yes Recreational Drug Type: Reports: Marijuana/Hashish (2 weeks ago) - HOME MEDS Home Medications: Home Meds clonazePAM [Klonopin] 1 mg PO BEDTIME 03/27/16 [History] Albuterol [Proair HFA] 1 puff IH Q4H PRN 11/29/17 [History] Fluticasone/Salmeterol [Advair 500-50] 1 puff INH BID 01/05/19 [History] Meloxicam 15 mg PO DAILY 01/05/19 [History] - CURRENT (IN HOUSE) MEDS Current Meds: Current Medications Albuterol (Proventil Neb Soln) 2.5 mg NEB ONETIME CHANDRIKA Lactated Ringer's (Ringers, Lactated) 1,000 mls @ 125 mls/hr IV ASDIRECTED CHANDRIKA Stop: 01/06/19 23:00 Lidocaine/Sodium Bicarbonate (Buffered Lidocaine 1% In Ns 8.4%) 0.25 ml IDERM ONETIME PRN PRN Reason: Prior to IV Start Stop: 01/06/19 18:00 Sodium Chloride (Saline Flush) 10 ml FLUSH ASDIRECTED PRN PRN Reason: Keep Vein Open Stop: 01/06/19 18:00 Discontinued Medications Fentanyl (Sublimaze) Confirm Administered Dose 250 mcg .ROUTE .STK-MED ONE Stop: 01/06/19 07:06 Lidocaine HCl (Xylocaine-Mpf 1%) Confirm Administered Dose 4 mls @ as directed .ROUTE .STK-MED ONE Stop: 01/06/19 07:06 Midazolam HCl (Versed 1 Mg/Ml) Confirm Administered Dose 2 mg .ROUTE .STK-MED ONE Stop: 01/06/19 07:06 Ondansetron HCl (Zofran) Confirm Administered Dose 4 mg .ROUTE .STK-MED ONE Stop: 01/06/19 07:06 Propofol (Diprivan 20 Ml) Confirm Administered Dose 200 mg .ROUTE .STK-MED ONE Stop: 01/06/19 07:06 Rocuronium [place] (Zemuron) Confirm Administered Dose 50 mg .ROUTE .STK-MED ONE Stop: 01/06/19 07:06 Rocuronium [place] (Zemuron) Confirm Administered Dose 100 mg .ROUTE .STK-MED ONE Stop: 01/06/19 07:13
[2019-01-06] MEDS: Albuterol 0.083% 2.5 MG/3 ML Neb Soln NEB SCH ×2 (07:43→11:11)
[2019-01-06] MEDS ORDERED: ceFAZolin 1 GM Vial ONE (07:50)
[2019-01-06] MEDS ORDERED: Dexamethasone 4 MG/ML SDV ONE (08:04)
[2019-01-06] MEDS ORDERED: Ketorolac 30 MG/ML SDV ONE (08:04)
[2019-01-06] MEDS ORDERED: Ketamine 500 mg/10 ML MDV ONE (08:18)
[2019-01-06] MEDS ORDERED: Lactated Ringers 1,000 ML ONE (08:23)
[2019-01-06] MEDS ORDERED: Albuterol 0.083% 2.5 MG/3 ML Neb Soln NEB PRN (08:26)
[2019-01-06] MEDS ORDERED: Ondansetron 4 MG/2 ML SDV IVPUSH PRN (08:26)
[2019-01-06] MEDS ORDERED: HYDROmorphone 0.5 MG/0.5 ML Syringe IVPUSH PRN (08:26)
[2019-01-06] MEDS ORDERED: HYDROmorphone 0.5 MG/0.5 ML Syringe ONE (08:39)
[2019-01-06] MEDS ORDERED: fentaNYL 100 MCG/2 ML SDV ONE (08:59)
[2019-01-06] MEDS ORDERED: Neostigmine Methylsulfate 1 MG/ML 5 ML Syringe ONE (09:06)
[2019-01-06] MEDS ORDERED: Glycopyrrolate 0.2 MG/ML SDV ONE (09:06)
--- NOTE | 2019-01-06 09:42 | PCM.POSTAN ---
POST ANESTHESIA ASSESSMENT - MENTAL STATUS Mental Status: Somnolent - VITAL SIGNS Pulse Rate: 101 SaO2: 97 Resp Rate: 20 Blood Pressure: 117/75 Temperature: 97.5 F - RESPIRATORY Respiratory Status: Respiratory Rate WNL, Airway Patent, O2 Saturation Stable - CARDIOVASCULAR CV Status: Pulse Rate WNL, Blood Pressure Stable - GASTROINTESTINAL GI Status: No Symptoms - PAIN Pain Score: 0 - POST OP HYDRATION Hydration Status: Adequate & Stable
--- NOTE | 2019-01-06 09:43 | PCM.OPNOTE ---
- General Post-Op/Procedure Note Date of Surgery/Procedure: 01/06/19 Operative Procedure(s): Diagnostic laparoscopy with lysis of adhesions, hysteroscopy with endometrial biopsy (D&C) and removal of skin tag (1) Pre Op Diagnosis: Dysfunctional uterine bleeding, irregular menses, pelvic pain , dysmenorrhea, skin tag of the labia majora left Post-Op Diagnosis: Same plus omental adhesions to anterior abdominal wall Primary Surgeon: Kameron Stearns Secondary Surgeon: Caden Capone Anesthesia Provider: Sonya Kuo Reason Automation Manager Was Necessary: Asst. surgery, decrease comorbidity and mortality Role of Automation Manager: Asst. surgery, decrease comorbidity and mortality Fluid Replacement, Intraop: 1,400 Output, Urine Amount: 100 EBL in mLs: 15 Drain/Tube Comments:: Sandhu during surgery removed after surgery Complications: None Condition: Good Free Text/Narrative:: Patient was transported to the operating room and placed under general anesthesia with endotracheal intubation the low dorsal lithotomy position. SCDs in place and functioning prior surgery. Ancef 2 g given intravenously prior surgery. Examination under anesthesia revealed no adnexal masses normal size uterus anterior flexion. Patient was prepared and draped in a sterile fashion. Timeout was performed confirming name date of and procedure as laparoscopy with possible lysis of adhesions or biopsies, hysteroscopy was D&C endometrial biopsy, skin tag removal. 2 mL of 0.5% Marcaine injected at the area of the planned umbilical incision pneumoperitoneum was obtained without difficulty with the pneumoperitoneum needle and introduction of 5 mm self- retaining trocar prompt visualization of pelvic organs was accomplished. Also multiple omental adhesions to the anterior abdominal wall. 2 additional incisions were made at the left and right flank transilluminating the abdomen injecting 2 mL of 0.5% Marcaine and introducing the 5 mm self-retaining trocar. The left tube had been removed previously a portion from ectopic the fimbria still existed there were no adhesions or scar tissue the right tube and ovary were normal the uterus is normal there was 1 small area of possible endometriosis on the anterior peritoneum that was biopsied and sent for evaluation is possible this could've just been blood vessels. Dense multiple adhesions of the omentum to the anterior abdominal wall were lysed with blunt and sharp dissection hemostasis was normal. The left and right flank trochars were removed and inspection of the trocar sites showed no bleeding. The pneumoperitoneum was reduced. The umbilical trocar was removed. The incisions were closed with 4-0 Monocryl interrupted suture and Dermabond. Sponge needle pack and estimate count were correct 2. No blood transfusions required. Attention was then turned to the hysteroscopy and D&C with endometrial biopsy. Hysteroscopy showed no polyps no significant amount of tissue. Curettage was performed and all tissue sent to pathology for tissue evaluation. The left labia majora skin tag was incised at the pedicle which was approximately 1 mm in diameter. Electrocautery used for hemostasis. Images: Image 001 shows overview of the pelvic organs with the right tube grasped appearing normal right ovary was normal left ovary was normal left fallopian tube portion was missing due to previous ectopic the uterus appears normal cul-de-sac appears normal. Images 002 again overview of the pelvis with the fimbriated end the left fallopian tube more visible the left ovary more visible. Image 003 shows a closer view of the left ovary and left fimbria. Image 004 shows posterior cul-de-sac with no endometriosis. Image 005 shows anterior cul-de-sac. Image 006 shows small area of redness possibly endometriosis biopsy was performed. Image 007 shows portion of the omental adhesions Image 008 shows additional omental adhesions during the removal. Image 009 shows additional lysis of omental adhesions. Image 010 shows the area of the omental adhesions after removal with no bleeding. Image 011 overview of the pelvis again showing right tube and ovary left ovary and portion of left fallopian tube and the uterus. Image 012 shows area of previous ectopic removal. Image 013 shows the left flank trocar site was no bleeding. Image 014 shows the right flank trocar incisional and no bleeding.
[2019-01-06] MEDS: fentaNYL 100 MCG/2 ML SDV IVPUSH PRN ×2 (09:59→10:21)
[2019-01-06] MEDS ORDERED: Ibuprofen 600 MG Tab PO ONE (10:30)
--- NOTE | 2019-01-06 12:29 | PCM48HPAN ---
Post Anesthesia Note - EVALUATION WITHIN 48HRS OF ANESTHETIC Vital Signs in Normal Range: Yes Patient Participated in Evaluation: Yes Respiratory Function Stable: Yes Airway Patent: Yes Cardiovascular Function Stable: Yes Hydration Status Stable: Yes Pain Control Satisfactory: Yes Nausea and Vomiting Control Satisfactory: Yes Mental Status Recovered: Yes (no complaints) Pulse Rate: 101 Resp Rate: 16 Temperature: 97.5 F Blood Pressure: 117/75
[2019-01-06 12:36] VITALS: BP 114/78
== END 2019-01-06 12:28 | disposition home or self-care (01) ==
LOC: JD.SDS 06:41
PROVIDERS: ATTEND Obstetrics & Gynecology
DX: N93.8 Other specified abnormal uterine and vaginal bleeding (principal); N92.6 Irregular menstruation, unspecified; N94.6 Dysmenorrhea, unspecified; K66.0 Peritoneal adhesions (postprocedural) (postinfection); N90.89 Other specified noninflammatory disorders of vulva and perineum; Z87.891 Personal history of nicotine dependence; Z79.1 Long term (current) use of non-steroidal anti-inflammatories (NSAID); Z79.51 Long term (current) use of inhaled steroids; Z79.899 Other long term (current) drug therapy; J45.909 Unspecified asthma, uncomplicated; F41.9 Anxiety disorder, unspecified; F32.9 Major depressive disorder, single episode, unspecified; M41.9 Scoliosis, unspecified
CPT/HCPCS: 11200; 36415; 49321; 58558; 81025; 85025; 86850; 86900; 86901; 93005; 94640; A9270; J0690; J1100; J1170; J1885; J2001; J2250; J2405; J2704; J2710; J3010; J3490; J7120; 00840

== ENCOUNTER 2020-03-08 09:52 | Emergency (ER) | payer BC ==
[2020-03-08] MEDS ORDERED: fentaNYL 100 MCG/2 ML SDV ONE (10:08)
[2020-03-08] MEDS ORDERED: Midazolam 1 MG/ML 2 ML SDV ONE (10:09)
[2020-03-08] MEDS ORDERED: Sodium Chloride 0.9% 1,000 ML IV ONE (10:10)
--- NOTE | 2020-03-08 10:37 | EDM.PDOC ---
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 Patient was able to get herself back up and present to the emergency room where she was brought to a treatment room and found to be in ventricular tachycardia rate in the 220s. Patient has had episodes like this dating back as far as August of this last year but they have not lasted this long patient states she had 4 or 5 episodes like this in August and a couple between then and now. These usually resolved fairly quickly on their own. Patient does not have any family history of sudden cardiac or significant coronary artery disease patient has no history of heart dysrhythmias. And she is not aware of any history of in herself or family of [id number]. I had the opportunity to discuss the situation with the patient's regular physician, Dr. Hilliard. He gives a history of restrictive lung disease secondary to her chronic scoliosis. I did update him on the anticipated disposition with the patient and he is very much against the idea of using amiodarone with the patient given her history of restrictive lung disease. Dr. Hilliard is very willing to see the patient Wednesday in follow-up. Chest Pain Score (Numeric/FACES): 6 - Related Data Allergies Allergy/AdvReac Type Severity Reaction Status Date / Time No Known Allergies Allergy Verified 03/08/20 10:17 Home Meds: Home Meds clonazePAM [Klonopin] 1 mg PO BEDTIME 03/27/16 [History] Albuterol [Proair HFA] 1 puff IH Q4H PRN 11/29/17 [History] Ibuprofen 200 mg PO Q6H #50 capsule 01/06/19 [Rx] Acetaminophen 650 mg PO Q6H PRN 03/08/20 [History] Baclofen 10 mg PO DAILY 03/08/20 [History] Budesonide/Formoterol Fumarate [Symbicort 160-4.5 Mcg Inhaler] 2 puff INH BID 03/08/20 [History] Omeprazole Magnesium [Prilosec Otc] 0 mg PO DAILY 03/08/20 [History] traMADol [Ultram] 50 mg PO BID PRN 03/08/20 [History] Past Medical History HEENT History: Reports: Allergic Rhinitis Cardiovascular History: Reports: None Respiratory History: Reports: Asthma Gastrointestinal History: Reports: None Genitourinary History: Reports: Other (See Below) Other Genitourinary History: dysmenorrhea, dysfunctional uterine bleeding, irregular menses, pelvic pain, 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 , 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 Musculoskeletal History: Reports: Back Pain, Chronic, Other (See Below) Other Musculoskeletal History: scoliosis, 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 Neurological History: Reports: None Psychiatric History: Reports: ADHD, Anxiety, Depression, Panic Attack, PTSD Endocrine/Metabolic History: Reports: None Hematologic History: Reports: Blood Transfusion(s) Immunologic History: Reports: None Oncologic (Cancer) History: Reports: None Dermatologic History: Reports: None - Past Surgical History Head Surgeries/Procedures: Reports: None HEENT Surgical History: Reports: None Cardiovascular Surgical History: Reports: None Respiratory Surgical History: Reports: None GI Surgical History: Reports: None, Appendectomy Female Surgical History: Reports: Breast Implant, D&C, Other (See Below) (laparoscopy) Endocrine Surgical History: Reports: None Neurological Surgical History: Reports: Scoliosis Musculoskeletal Surgical History: Reports: Other (See Below) Oncologic Surgical History: Reports: None Dermatological Surgical History: Reports: None Social & Family History - Family History Family Medical History: Noncontributory - Caffeine Use Caffeine Use: Reports: Coffee, Soda, Tea - Living Situation & Occupation Living situation: Reports: Single, Alone Occupation: Unemployed ED ROS GENERAL - Review of Systems Review Of Systems: See Below Constitutional: Reports: Weakness (See history of present illness). Denies: Fever, Chills HEENT: Reports: No Symptoms Respiratory: Reports: No Symptoms Cardiovascular: Reports: Lightheadedness, Palpitations, Syncope (Near syncopal events) Endocrine: Reports: No Symptoms GI/Abdominal: Reports: No Symptoms : Reports: No Symptoms Musculoskeletal: Reports: No Symptoms Skin: Reports: No Symptoms Neurological: Reports: No Symptoms ED EXAM, GENERAL - Physical Exam Exam: See Below Exam Limited By: No Limitations General Appearance: Moderate Distress (Upon arrival the patient was in distress secondary to her significant tachycardia and chest discomfort associated with this) Head: Atraumatic, Normocephalic Neck: Normal Inspection, Supple, Non-Tender, Full Range of Motion. No: Lymphadenopathy (L), Lymphadenopathy (R) Respiratory/Chest: No Respiratory Distress, Lungs Clear, Normal Breath Sounds Cardiovascular: Regular Rate, Rhythm (Proximately 100 at the time of my exam after the spontaneous resolution of her significant tachycardic episode during her tachycardia she had a very rapid heart rate), No Edema, No Murmur GI/Abdominal: Normal Bowel Sounds, Soft, Non-Tender Extremities: Normal Inspection, No Pedal Edema Neurological: Alert, Oriented, Normal Cognition EKG INTERPRETATION EKG Date: 03/08/20 Rhythm: Other (Ventricular tachycardia) P-Wave: Absent (Not clearly identified with this tachycardia) QRS: Wide ST-T: Other (Associated changes with a wide complex tachycardia) QT: Normal Comparison: Other: (Patient had a total of 3 EKGs done here in the emergency room first 1 showed the ventricular tachycardia the second showed sinus tachycardia rate 134 now narrow complex P waves clearly identified some baseline artifact. EKG #3 shows sinus rhythm rate 91 with a PVC.) Course - Vital Signs Last Recorded V/S: Last Vital Signs Temp 36.2 C 03/08/20 09:56 Pulse 220 H 03/08/20 09:56 Resp 24 H 03/08/20 09:56 BP 123/94 H 03/08/20 09:56 Pulse Ox 100 03/08/20 09:56 - Orders/Labs/Meds Orders: Active Orders 24 hr Category Date Time Status EKG Documentation Completion [RC] STAT Care 03/08/20 10:14 Active Chest 1V Frontal [CR] Stat Exams 03/08/20 10:14 Taken Labs: Laboratory Tests 03/08/20 03/08/20 03/08/20 Range/Units 10:00 10:00 10:00 WBC 12.80 H (3.98-10.04) K/mm3 RBC 5.37 H (3.98-5.22) M/mm3 Hgb 15.1 (11.2-15.7) gm/dl Hct 46.3 H (34.1-44.9) % MCV 86.2 (79.4-94.8) fl MCH 28.1 (25.6-32.2) pg MCHC 32.6 (32.2-35.5) g/dl RDW Std Deviation 44.7 (36.4-46.3) fL Plt Count 539 H D (182-369) K/mm3 MPV 9.9 (9.4-12.3) fl Neut % (Auto) 59.3 (34.0-71.1) % Lymph % (Auto) 28.9 (19.3-51.7) % [place] % (Auto) 7.9 (4.7-12.5) % Eos % (Auto) 3.2 (0.7-5.8) Baso % (Auto) 0.5 (0.1-1.2) % Neut # (Auto) 7.58 H (1.56-6.13) K/mm3 Lymph # (Auto) 3.70 (1.18-3.74) K/mm3 [place] # (Auto) 1.01 H (0.24-0.36) K/mm3 Eos # (Auto) 0.41 H (0.04-0.36) K/mm3 Baso # (Auto) 0.07 (0.01-0.08) K/mm3 Manual Slide Review Abnormal smear PT 10.5 (9.7-12.0) SECONDS INR 0.96 APTT 27 (22-31) SECONDS Sodium 137 (136-145) mEq/L Potassium 4.0 (3.5-5.1) mEq/L Chloride 100 (98-107) mEq/L Carbon Dioxide 24 (21-32) mEq/L Anion Gap 17.0 H (5-15) BUN 14 (7-18) mg/dL Creatinine 1.3 H (0.55-1.02) mg/dL Est Cr Clr Drug Dosing 49.54 mL/min Estimated GFR (MDRD) 44 (>60) mL/min BUN/Creatinine Ratio 10.8 L (14-18) Glucose 82 (74-106) mg/dL Calcium 9.4 (8.5-10.1) mg/dL Magnesium 1.8 (1.8-2.4) mg/dl Total Bilirubin 0.4 (0.2-1.0) mg/dL AST 22 (15-37) U/L ALT 27 (14-59) U/L Alkaline Phosphatase 93 (46-116) U/L Troponin I < 0.017 (0.00-0.056) ng/mL Total Protein 8.6 H (6.4-8.2) g/dl Albumin 4.1 (3.4-5.0) g/dl Globulin 4.5 gm/dL Albumin/Globulin Ratio 0.9 L (1-2) TSH 3rd Generation 4.323 H (0.358-3.74) uIU/mL Meds: Medications Discontinued Medications Generic Name Dose Route Start Last Admin Trade Name Swathi PRN Reason Stop Dose Admin Fentanyl Confirm 03/08/20 10:08 03/08/20 10:10 Sublimaze Administered 03/08/20 10:09 Not Given Dose 200 mcg .ROUTE .STK-MED ONE Amiodarone HCl/Dextrose 100 mls @ 600 mls/hr 03/08/20 10:22 03/08/20 10:35 Nexterone In Dextrose 150 Mg/100 Ml IV 03/08/20 10:31 600 mls/hr .BOLUS ONE Administration Protocol Sodium Chloride 1,000 mls @ 999 mls/hr 03/08/20 10:10 03/08/20 10:15 Normal Saline IV 03/08/20 11:10 999 mls/hr ONETIME ONE Administration Midazolam HCl Confirm 03/08/20 10:09 03/08/20 10:10 Versed 1 Mg/Ml Administered 03/08/20 10:10 Not Given Dose 6 mg .ROUTE .STK-MED ONE - Re-Assessments/Exams Free Text/Narrative Re-Assessment/Exam: 03/08/20 10:[address] Subramanian, inspector missile at [facility] in [place]. He believes this is ventricular tachycardia, which is what I was thinking. However from get the patient from 1 of the exam rooms to 1 of the trauma rooms anticipating DC cardioversion the patient converted to an SVT which gradually but rapidly dropped into a much more stable rate and the patient felt much better. Her rate stabilized in the 90s to 100 which was clearly narrow complex with normal P waves. There was no short UT or delta wave like pattern in any of the leads. We discussed treatment versus nontreatment and it seemed to be best as the patient has had episodes like this in the past to go ahead and start treatment his recommendation was amiodarone 150 mg IV and then start 400 mg p.o. twice daily for 1 week and then 400 mg daily thereafter and have her follow-up at the [facility] next week. 03/08/20 11:34 I did review the situation with the patient's regular physician, Dr. Hilliard, who is very much against the idea of starting her on amiodarone because of her restrictive lung disease. However it is good to know what seems to be causing her events we agreed that probably the best option would be starting no medication at this point. The patient will follow-up at the [facility] clinic next week we are trying to schedule an appointment. And Dr. Hilliard can see the patient on Wednesday. I did this with the patient and the patient is comfortable with this. I will try him contact Dr. Subramanian and update him on the information however 1 call at [facility] in [place] is was busy when I did call a few minutes ago. Troponin is normal her TSH is mildly elevated and she might be mildly dehydrated on her labs significant electrolyte abnormality. 03/08/20 12:[address] Subramanian and the patient does have an appointment with cardiology on Wednesday Departure - Departure Time of Disposition: 12:37 Disposition: Home, Self-Care 01 Clinical Impression: Wide-complex tachycardia, Ventricular tachycardia (paroxysmal) Instructions: Ventricular Tachycardia Referrals: Bright Randhawa MD [Primary Care Provider] - Forms: ED Department Discharge Additional Instructions: Return to the emergency room with any questions problems or worsening symptoms. Follow-up at the [facility] and lung clinic on Wednesday at 1030. Arrive 45 minutes early. [phone] Follow-up with Dr. Hilliard, your regular physician next week. Sepsis Event Note (ED) - Focused Exam Vital Signs: Vital Signs Temp Pulse Resp BP Pulse Ox 03/08/20 09:56 36.2 C 220 H 24 H 123/94 H 100 - My Orders Last 24 Hours: My Active Orders 03/08/20 10:14 EKG Documentation Completion [RC] STAT Chest 1V Frontal [CR] Stat - Assessment/Plan Last 24 Hours: My Active Orders 03/08/20 10:14 EKG Documentation Completion [RC] STAT Chest 1V Frontal [CR] Stat
[2020-03-08 13:10] VITALS: BP 123/99; PULSE 74
--- NOTE | 2020-03-08 14:17 | CR ---
Chest: Portable view of the chest was obtained. Comparison: No prior chest imaging is available. Heart size is normal. Tortuous thoracic aorta is noted. Single scoliosis fixation gio is seen. Lungs are clear with no acute parenchymal change. Impression: 1. Findings as noted above. 2. Nothing acute is appreciated on portable chest x-ray. Diagnostic code #2 This report was dictated in MDT
== END 2020-03-08 12:50 | disposition home or self-care (01) ==
LOC: JD.ED 09:52
DX: I47.2 Ventricular tachycardia (principal); J45.909 Unspecified asthma, uncomplicated; F41.9 Anxiety disorder, unspecified; F32.9 Major depressive disorder, single episode, unspecified; Z79.899 Other long term (current) drug therapy
CPT/HCPCS: 36415; 71045; 71045-26; 80053; 83735; 84443; 84484; 85025; 85610; 85730; 93005; 93010; 96361; 96374; 99283; 99285-25; J0282; J7030

== ENCOUNTER 2022-05-20 12:46 | Emergency (ER) | payer BC ==
[2022-05-20 13:10] VITALS: BP 107/75; PULSE 128
[2022-05-20] MEDS ORDERED: Albuterol/Ipratropium 3.0-0.5 MG/3 ML Neb Soln NEB ONE ×2 (13:13→15:18)
[2022-05-20] MEDS ORDERED: LORazepam 1 MG Tab PO ONE (15:19)
== END 2022-05-20 16:32 | disposition home or self-care (01) ==
LOC: SUPCPDRO 12:46 → JD.ED 12:46
DX: J45.21 Mild intermittent asthma with (acute) exacerbation (principal); F41.9 Anxiety disorder, unspecified; Z79.899 Other long term (current) drug therapy; Z90.49 Acquired absence of other specified parts of digestive tract
CPT/HCPCS: 36415; 80053; 83735; 85025; 93005; 94640; 99285; A9270; J7620-GY

== ENCOUNTER 2022-10-27 18:11 | Emergency (ER) | payer BC ==
[2022-10-27] MEDS ORDERED: Dextrose 5%-Lactated Ringers 1,000 ML IV SCH (19:00)
[2022-10-27] MEDS ORDERED: Albuterol 6.7 GM Inhaler INH PRN (20:08)
[2022-10-27 21:09] LABS: ESTIMATED GFR 89 mL/min (>60)
[2022-10-27] MEDS ORDERED: Albuterol/Ipratropium 3.0-0.5 MG/3 ML Neb Soln NEB PRN (21:30)
[2022-10-27] MEDS ORDERED: predniSONE 20 MG Tab PO ONE (21:30)
[2022-10-27 21:53] VITALS: BP 134/84; PULSE 99
== END 2022-10-27 21:52 | disposition home or self-care (01) ==
LOC: SUPCPDRO 18:11 → JD.ED 18:11
DX: U07.1 COVID-19 (principal); J45.901 Unspecified asthma with (acute) exacerbation; Z79.899 Other long term (current) drug therapy
CPT/HCPCS: 36415; 71045; 80053; 84484; 85025; 85379; 86140; 96365; 99285; A9270; J7121; J7512; 99283; J7620-GY

== ENCOUNTER 2024-01-27 07:00 | Day surgery (SDC) | payer BC, OTHER ==
[~2024-01-27 07:00] MED LIST changes: +Dexamethasone 4 MG/ML 5 ML MDV ONE; +Lidocaine 1% 5 ML VIAL ONE; -Lidocaine 1%/Sod Bicarbonate in NS 8.4% 1 ML Syringe IDERM PRN; +Ondansetron 4 MG/2 ML SDV ONE; +Propofol 200 MG/20 ML SDV ONE; +Rocuronium 50 MG/5 ML Vial ONE; +Sodium Chloride 0.9% 10 ML Syringe FLUSH SCH; +fentaNYL 250 MCG/5 ML SDV ONE
[2024-01-27] MEDS: Lactated Ringers 1,000 ML IV SCH (07:15)
[2024-01-27] MEDS ORDERED: Ondansetron 4 MG/2 ML SDV IVPUSH PRN (07:20)
[2024-01-27] MEDS ORDERED: fentaNYL 100 MCG/2 ML SDV IVPUSH PRN (07:20)
[2024-01-27] MEDS ORDERED: HYDROmorphone 0.5 MG/0.5 ML Syringe IVPUSH PRN (07:20)
[2024-01-27] MEDS: VANCOmycin 1.5 GM/300 ML 1.5 GM in Premix Bag 1 BAG IV ONE (08:00)
[2024-01-27] MEDS ORDERED: ceFAZolin 2 GM Vial ONE (08:43)
[2024-01-27] MEDS: EPINEPHrine 1 MG/ML SDV ONE (08:45)
[2024-01-27] MEDS: Bupivacaine 0.25% 10 ML SDV ONE (08:45)
[2024-01-27] MEDS ORDERED: fentaNYL 250 MCG/5 ML SDV ONE (08:46)
[2024-01-27] MEDS ORDERED: Acetaminophen/HYDROcodone 325-5 MG Tab PO PRN (09:37)
[2024-01-27 12:21] VITALS: BP 138/94; PULSE 103
== END 2024-01-27 11:50 | disposition home or self-care (01) ==
LOC: JD.SDS 07:00
PROVIDERS: ATTEND Orthopaedic Surgery
DX: S83.241A Other tear of medial meniscus, current injury, right knee, initial encounter (principal); M17.11 Unilateral primary osteoarthritis, right knee; J45.909 Unspecified asthma, uncomplicated; F32.A Depression, unspecified; F41.9 Anxiety disorder, unspecified; K21.9 Gastro-esophageal reflux disease without esophagitis; E78.5 Hyperlipidemia, unspecified; K43.9 Ventral hernia without obstruction or gangrene; E66.9 Obesity, unspecified; Z68.37 Body mass index [BMI] 37.0-37.9, adult; Z87.891 Personal history of nicotine dependence; Z79.899 Other long term (current) drug therapy
CPT/HCPCS: 01400; 82947; 87641; J0171; J0665; J0690; J1100; J1596; J2405; J2704; J3010; J3370; J3490; J7120

== ENCOUNTER 2024-02-22 09:59 | Inpatient (IN) | payer BC ==
[~2024-02-22 09:59] MED LIST changes: -Dexamethasone 4 MG/ML 5 ML MDV ONE; -Lidocaine 1% 5 ML VIAL ONE; -Ondansetron 4 MG/2 ML SDV ONE; -Propofol 200 MG/20 ML SDV ONE; -Rocuronium 50 MG/5 ML Vial ONE; -Sodium Chloride 0.9% 10 ML Syringe FLUSH SCH; -fentaNYL 250 MCG/5 ML SDV ONE
[2024-02-22] MEDS ORDERED: Midazolam 1 MG/ML 2 ML SDV ONE (11:31)
[2024-02-22] MEDS ORDERED: Lidocaine 1% 2 ML ONE (11:32)
[2024-02-22] MEDS ORDERED: Propofol 200 MG/20 ML SDV ONE ×2 (11:33)
[2024-02-22] MEDS ORDERED: fentaNYL 250 MCG/5 ML SDV ONE ×2 (11:33→14:22)
[2024-02-22] MEDS ORDERED: HYDROmorphone 0.5 MG/0.5 ML Syringe IVPUSH PRN (11:39)
[2024-02-22] MEDS ORDERED: Ondansetron 4 MG/2 ML SDV IVPUSH PRN (11:39)
[2024-02-22] MEDS ORDERED: fentaNYL 100 MCG/2 ML SDV IVPUSH PRN (11:39)
[2024-02-22] MEDS: Clindamycin Phosphate in D5W 900 MG in Premix Bag 1 BAG IV ONE (12:18)
[2024-02-22] MEDS: Lactated Ringers 1,000 ML IV SCH (12:23)
[2024-02-22] MEDS ORDERED: Sugammadex Sodium 200 MG/2 ML VIAL IV ONE (12:41)
[2024-02-22] MEDS ORDERED: HYDROmorphone 0.5 MG/0.5 ML Syringe ONE ×2 (13:22→14:14)
[2024-02-22] MEDS ORDERED: Rocuronium 50 MG/5 ML Vial ONE ×2 (13:25→14:30)
[2024-02-22] MEDS ORDERED: Dexamethasone 4 MG/ML 5 ML MDV ONE (13:45)
[2024-02-22] MEDS ORDERED: Lidocaine 1% with EPINEPHrine 1:100,000 20 ML MDV ONE (13:52)
[2024-02-22] MEDS: Lidocaine 1% with EPINEPHrine 1:100,000 20 ML MDV ONE (13:53)
[2024-02-22] MEDS ORDERED: Lactated Ringers 1,000 ML ONE ×2 (14:09→15:33)
[2024-02-22] MEDS ORDERED: Labetalol 100 MG/20 ML MDV ONE (14:30)
[2024-02-22] MEDS ORDERED: Ondansetron 4 MG/2 ML SDV ONE (14:41)
[2024-02-22] MEDS ORDERED: Ketorolac 30 MG/ML SDV ONE (15:10)
[2024-02-22] MEDS: HYDROmorphone 0.5 MG/0.5 ML Syringe IVPUSH PRN (19:45)
[2024-02-22] MEDS: Acetaminophen 325 MG Tab PO SCH ×2 (19:50→20:37)
[2024-02-22] MEDS: Sodium Chloride 0.9% 10 ML Syringe FLUSH SCH (19:50)
[2024-02-22] MEDS: Ketorolac 30 MG/ML SDV IVPUSH SCH (20:37)
[2024-02-22] MEDS: Heparin Sodium 5,000 Units/ML Vial SUBCUT SCH (20:38)
[2024-02-22] MEDS: Ondansetron 4 MG/2 ML SDV IV PRN (23:54)
[2024-02-23] MEDS: LORazepam 2 MG/ML SDV IV PRN (00:01)
[2024-02-23 05:19] LABS: ANION GAP 11.9 (5-15); CALCIUM 8.4 mg/dL (8.5-10.1); EST CRCL DRUG DOSING (CG) 63.99 mL/min; POTASSIUM,K 3.9 mEq/L (3.5-5.1)
[2024-02-23 05:37] LABS: BASOPHILS PERCENT AUTO 0.1 % (0.0-1.0); HEMATOCRIT 36.2 % (37.0-47.0); HEMOGLOBIN 11.4 gm/dl (12.0-16.0); IMMATURE GRAN ABSOLUTE AUTO 0.09 K/mm3 (0.00-0.05); IMMATURE GRAN PERCENT AUTO 0.6 % (0.0-0.4); LYMPHOCYTES ABSOLUTE AUTO 1.3 K/mm3 (1.0-4.8); LYMPHOCYTES PERCENT AUTO 8.3 % (24.0-44.0); MEAN CORPUSCULAR HEMOGLOBIN 26.9 pg (28.0-32.0); MEAN CORPUSCULAR HGB CONC 31.5 g/dl (32.0-36.0); MEAN CORPUSCULAR VOLUME 85.4 fl (83.0-99.0); MEAN PLATELET VOLUME 9.8 fl (9.4-12.3); MONOCYTES PERCENT AUTO 6.1 % (0.0-8.0); NEUTROPHILS ABSOLUTE AUTO 13.7 K/mm3 (1.8-7.7); NEUTROPHILS PERCENT AUTO 84.9 % (41.0-71.0); PLATELET COUNT,PLT 317 K/mm3 (150-400); RED BLOOD CELL COUNT 4.24 M/mm3 (4.10-5.30); WHITE BLOOD CELL COUNT,WBC 16.12 K/mm3 (3.9-11.3)
[2024-02-23] MEDS: Lactated Ringers 1,000 ML IV SCH (05:54)
[2024-02-23] MEDS ORDERED: Lactated Ringers 1,000 ML IV SCH (07:45)
[2024-02-23] MEDS: Topiramate 25 MG Tab PO SCH ×2 (08:45→20:59)
[2024-02-23] MEDS: Montelukast 10 MG Tab PO SCH (08:45)
[2024-02-23] MEDS: Albuterol 6.7 GM Inhaler INH PRN (12:20)
[2024-02-24 05:19] LABS: HEMATOCRIT 35.5 % (37.0-47.0); HEMOGLOBIN 11.1 gm/dl (12.0-16.0); MEAN CORPUSCULAR HEMOGLOBIN 26.7 pg (28.0-32.0); MEAN CORPUSCULAR HGB CONC 31.3 g/dl (32.0-36.0); MEAN CORPUSCULAR VOLUME 85.3 fl (83.0-99.0); MEAN PLATELET VOLUME 10.1 fl (9.4-12.3); PLATELET COUNT,PLT 301 K/mm3 (150-400); RED BLOOD CELL COUNT 4.16 M/mm3 (4.10-5.30)
[2024-02-24 05:23] LABS: ANION GAP 12.6 (5-15); CALCIUM 8.1 mg/dL (8.5-10.1); CREATININE 0.9 mg/dL (0.55-1.02); EST CRCL DRUG DOSING (CG) 71.11 mL/min; POTASSIUM,K 3.6 mEq/L (3.5-5.1)
[2024-02-24 16:24] VITALS: BP 136/78; PULSE 98
== END 2024-02-24 10:35 | disposition home or self-care (01) | DRG 227 ==
LOC: JD.SDS 09:59 → JD.MS 16:16
PROVIDERS: ADMIT Surgery; ATTEND Surgery
PROC: 0WUF0JZ Supplement Abdominal Wall with Synthetic Substitute, Open Approach (ICD-10-PCS; principal; 2024-02-22 13:30)
DX: K43.9 Ventral hernia without obstruction or gangrene (principal); F41.9 Anxiety disorder, unspecified; M19.90 Unspecified osteoarthritis, unspecified site; J45.909 Unspecified asthma, uncomplicated; F32.A Depression, unspecified; K21.9 Gastro-esophageal reflux disease without esophagitis; E78.5 Hyperlipidemia, unspecified; E66.9 Obesity, unspecified; Z90.49 Acquired absence of other specified parts of digestive tract; Z87.440 Personal history of urinary (tract) infections; Z79.51 Long term (current) use of inhaled steroids; Z79.899 Other long term (current) drug therapy; Z98.890 Other specified postprocedural states; Z90.722 Acquired absence of ovaries, bilateral; Z68.38 Body mass index [BMI] 38.0-38.9, adult
CPT/HCPCS: 00790; 36415; 80048; 85025; 85027; 94640; 94760; A9270-GY; J0736; J1100; J1170; J1596; J1644; J1885; J1921; J2060; J2250; J2405; J2704; J3010; J3490; J7120

== ENCOUNTER 2024-03-08 18:44 | Emergency (ER) | payer BC ==
[2024-03-08 20:06] VITALS: BP 135/85; PULSE 88
== END 2024-03-08 19:45 | disposition home or self-care (01) ==
LOC: JD.ED 18:44
DX: L03.311 Cellulitis of abdominal wall (principal); Z79.51 Long term (current) use of inhaled steroids; Z79.899 Other long term (current) drug therapy
CPT/HCPCS: 99283

== ENCOUNTER 2024-10-25 16:42 | Emergency (ER) | payer SELFPAY | END 2024-10-25 18:34 | disposition left against medical advice (07) | LOC: JD.ED 16:42 | DX: Z53.21 Procedure and treatment not carried out due to patient leaving prior to being seen by health care provider (principal) ==

== ENCOUNTER 2025-06-28 08:00 | Day surgery (SDC) | payer BC ==
[~2025-06-28 08:00] MED LIST changes: +Sodium Chloride 0.9% 10 ML Syringe FLUSH SCH
[2025-06-28] MEDS: Lactated Ringers 1,000 ML IV SCH (08:15)
[2025-06-28] MEDS ORDERED: Lidocaine 1% 6 ML ONE (08:47)
[2025-06-28] MEDS ORDERED: Propofol 200 MG/20 ML SDV ONE (08:47)
[2025-06-28] MEDS ORDERED: Midazolam 1 MG/ML 2 ML SDV ONE (08:47)
[2025-06-28 10:41] VITALS: PULSE 80
[2025-06-28 11:32] VITALS: BP 130/80
== END 2025-06-28 10:58 | disposition home or self-care (01) ==
LOC: JD.SDS 08:00
PROVIDERS: ATTEND Surgery
DX: K29.50 Unspecified chronic gastritis without bleeding (principal); K29.80 Duodenitis without bleeding; K44.9 Diaphragmatic hernia without obstruction or gangrene; K21.9 Gastro-esophageal reflux disease without esophagitis; I10 Essential (primary) hypertension; J45.909 Unspecified asthma, uncomplicated; F31.9 Bipolar disorder, unspecified; E78.5 Hyperlipidemia, unspecified; E66.9 Obesity, unspecified; Z68.37 Body mass index [BMI] 37.0-37.9, adult; Z87.891 Personal history of nicotine dependence; Z79.899 Other long term (current) drug therapy
CPT/HCPCS: 43239; C9777; J2003; J2250; J2704; J7120; 00731

== ENCOUNTER 2025-07-17 10:38 | Inpatient (IN) | payer BC ==
[~2025-07-17 10:38] MED LIST changes: +Dexamethasone 4 MG/ML 5 ML MDV ONE; +Ketamine HCL/NACL, ISO-OSM 50 MG/5 ML Syringe ONE; +Ondansetron 4 MG/2 ML SDV ONE; +Propofol 200 MG/20 ML SDV ONE; -Sodium Chloride 0.9% 10 ML Syringe FLUSH SCH; +dexmedeTOMIDine HCl 200 MCG/2 ML SDV ONE; +fentaNYL 250 MCG/5 ML SDV ONE; +propofoL 500 MG/50 ML 50 ML ONE
[2025-07-17] MEDS ORDERED: Phenylephrine 1% 10 MG/ML SDV ONE (11:06)
[2025-07-17] MEDS: Lactated Ringers 1,000 ML IV SCH ×2 (11:15→16:17)
[2025-07-17] MEDS ORDERED: Ondansetron 4 MG/2 ML SDV IVPUSH PRN (12:44)
[2025-07-17] MEDS ORDERED: fentaNYL 100 MCG/2 ML SDV IVPUSH PRN (12:44)
[2025-07-17] MEDS ORDERED: Ondansetron 4 MG/2 ML SDV IV PRN (14:05)
[2025-07-17] MEDS ORDERED: Benzocaine/Cetylpyridinium/Menthol Lozenge MUCMEM PRN (14:09)
[2025-07-17] MEDS: EPINEPHrine 1 MG/ML SDV ONE (14:45)
[2025-07-17] MEDS ORDERED: CLONAZEPAM 0.5 MG PO SCH (15:00)
[2025-07-17] MEDS: Ketorolac 15 MG/ML SDV IVPUSH SCH (16:10)
[2025-07-17] MEDS: Sodium Chloride 0.9% 10 ML Syringe FLUSH SCH (18:07)
[2025-07-17] MEDS ORDERED: diphenhydrAMINE 50 MG/ML SDV IVPUSH PRN (21:00)
[2025-07-17] MEDS: Formoterol/Mometasone 200-5 MCG 8.8 GM Inhaler IH SCH (21:01)
[2025-07-18 04:53] LABS: BASOPHILS ABSOLUTE AUTO 0.0 K/mm3 (0.0-0.2); BASOPHILS PERCENT AUTO 0.3 % (0.0-1.0); EOSINOPHILS ABSOLUTE AUTO 0.0 K/mm3 (0.0-0.4); EOSINOPHILS PERCENT AUTO 0.1 % (0.0-6.0); IMMATURE GRAN ABSOLUTE AUTO 0.06 K/mm3 (0.00-0.05); IMMATURE GRAN PERCENT AUTO 0.4 % (0.0-0.4); LYMPHOCYTES ABSOLUTE AUTO 2.1 K/mm3 (1.0-4.8); LYMPHOCYTES PERCENT AUTO 13.5 % (24.0-44.0); MEAN PLATELET VOLUME 9.9 fl (9.4-12.3); MONOCYTES ABSOLUTE AUTO 0.9 K/mm3 (0.0-0.8); MONOCYTES PERCENT AUTO 6.0 % (0.0-8.0); NEUTROPHILS ABSOLUTE AUTO 12.1 K/mm3 (1.8-7.7); NEUTROPHILS PERCENT AUTO 79.7 % (41.0-71.0); NRBC ABSOLUTE 0.00 (0.00-0.02); NRBC PERCENT 0.0 % (0.0-0.2); PLATELET COUNT,PLT 354 K/mm3 (150-400); RED BLOOD CELL COUNT 4.45 M/mm3 (4.10-5.30); WHITE BLOOD CELL COUNT,WBC 15.20 K/mm3 (3.9-11.3)
[2025-07-18 05:24] LABS: BLOOD UREA NITROGEN,BUN 11.0 mg/dL (7-18); CARBON DIOXIDE,CO2 27.0 mEq/L (21-32); CHLORIDE,CL 104.0 mEq/L (98-107); CREATININE 1.0 mg/dL (0.55-1.02); EST CRCL DRUG DOSING (CG) 56.18 mL/min; ESTIMATED GFR 67.0 mL/min (>60); GLUCOSE RANDOM 94.0 mg/dL (70-99); POTASSIUM,K 4.4 mEq/L (3.5-5.1); SODIUM,NA 139.0 mEq/L (136-145)
[2025-07-18] MEDS: Diltiazem 240 MG Cap.ER PO SCH (09:02)
[2025-07-18 09:12] VITALS: BP 133/94; PULSE 105
== END 2025-07-18 10:50 | disposition home or self-care (01) | DRG 220 ==
LOC: JD.MS 10:38
PROVIDERS: ADMIT Surgery; ATTEND Surgery
PROC: 0BQT4ZZ Repair Diaphragm, Percutaneous Endoscopic Approach (ICD-10-PCS; principal; 2025-07-17 13:00)
PROC: 0DV44ZZ Restriction of Esophagogastric Junction, Percutaneous Endoscopic Approach (ICD-10-PCS; principal; 2025-07-17 13:00)
DX: K44.9 Diaphragmatic hernia without obstruction or gangrene (principal); K21.9 Gastro-esophageal reflux disease without esophagitis; I10 Essential (primary) hypertension; J45.909 Unspecified asthma, uncomplicated; M54.9 Dorsalgia, unspecified; G89.29 Other chronic pain; M19.90 Unspecified osteoarthritis, unspecified site; F90.9 Attention-deficit hyperactivity disorder, unspecified type; F41.9 Anxiety disorder, unspecified; F32.A Depression, unspecified; F43.12 Post-traumatic stress disorder, chronic; Z90.49 Acquired absence of other specified parts of digestive tract; Z98.890 Other specified postprocedural states; Z79.899 Other long term (current) drug therapy
CPT/HCPCS: 00750; 36415; 80048; 85025; 94640; 94761; A9270-GY; J0169; J0665; J0690; J1100; J1171; J1650; J1885; J2371; J2405; J2704; J3010; J3490; J7120